=== PATIENT | female | born 1960 | race Caucasian/White ===

== ENCOUNTER 2018-01-12 09:25 | Emergency (ER) | payer MEDICAID, OTHER ==
[2018-01-12] MEDS: IBUPROFEN 600 MG TAB PO (10:21)
== END 2018-01-12 12:49 | disposition home or self-care (01) ==
LOC: E/R 09:25
DX: S16.1XXA Strain of muscle, fascia and tendon at neck level, initial encounter (principal); R40.2252 Coma scale, best verbal response, oriented, at arrival to emergency department; R40.2142 Coma scale, eyes open, spontaneous, at arrival to emergency department; R40.2362 Coma scale, best motor response, obeys commands, at arrival to emergency department; V89.2XXA Person injured in unspecified motor-vehicle accident, traffic, initial encounter
CPT/HCPCS: 72050; 73562; 99284-25